=== PATIENT | male | born 1965 | race Caucasian/White ===

== ENCOUNTER 2019-04-04 05:46 | Day surgery (SDC) | payer OTHER ==
[~2019-04-04] VITALS: Ht 175.3 cm; Wt 74.9 kg
[~2019-04-04 05:46] MED LIST: CYCL10 PO; LISI20 PO; Metamucil Smooth1 EA PO; TAMS.4ER PO; ZOLP5 PO
--- NOTE | 2019-04-04 06:53 | NUR ---
Ambulatory in Day Surgery History, Chart, Medications and Allergies reviewed before start of procedure.Patient confirms NPO status and agrees with scheduled surgery. Lungs clear T/O to Auscultation. Patient States Post-Procedure ride home has been arranged WITH FRIEND.
--- NOTE | 2019-04-04 09:16 | NUR ---
"DAY SURGERY RN | HANDOFF TO AMER[facility] HAMMOND VSS. A/O. DENIES NAUSEA. TOLERATING PO FLUIDS. PAIN PILL GIVEN PER ORDERS. NO ISSUES. SITE C/D/I."
--- NOTE | 2019-04-05 16:48 | NUR ---
04/05/19 1648 Gabrielle Sommer VERIFICATIONS, AUDITS.
== END 2019-04-04 10:19 | disposition home or self-care (01) ==
LOC: ORSCMMR 05:46 → ORD 07:30 → ORSCMMR 07:30
PROVIDERS: Surgery
PROC: 06BY0ZC Excision of Hemorrhoidal Plexus, Open Approach (ICD-10-PCS; principal; 2019-04-04 07:30)
DX: K64.2 Third degree hemorrhoids (principal); I10 Essential (primary) hypertension; F43.10 Post-traumatic stress disorder, unspecified; N40.0 Benign prostatic hyperplasia without lower urinary tract symptoms; Z79.899 Other long term (current) drug therapy
CPT/HCPCS: 88304; A9270-GY; J2250; J2405; J2704; J3010; J7120